=== PATIENT | female | born 1960 | race Caucasian/White ===

== ENCOUNTER 2016-06-28 06:39 | Day surgery (SDC) | payer OTHER ==
[2016-06-17 13:53] LABS: BASOPHILS 0.4 %; BASOPHILS ABSOLUTE 0.04 10/3/uL (0.0-0.16); EOSINOPHILS 0.6 %; EOSINOPHILS ABSOLUTE 0.07 10/3/uL (0.0-0.53); HEMATOCRIT 41.8 % (36.0-48.0); HEMOGLOBIN 14.2 g/dL (12.0-16.0); IMMATURE GRANULOCYTES 0.3 %; IMMATURE GRANULOCYTES ABSOLUTE 0.03 10/3/uL (0.0-0.11); LYMPHOCYTES 17.8 %; LYMPHOCYTES ABSOLUTE 2.02 10/3/uL (0.67-4.30); MEAN CORPUSCULAR VOLUME 91.3 fL (80-100); MEAN PLATELET VOLUME 11.1 fL (9.2-13.0); MONOCYTES 5.4 %; MONOCYTES ABSOLUTE 0.61 10/3/uL (0.21-1.20); NEUTROPHILS 75.5 %; NEUTROPHILS ABSOLUTE 8.61 10/3/uL (2.02-8.40); PLATELET COUNT 299 10/3/uL (150-400); RBC DISTRIBUTION WIDTH 12.8 % (12.0-16.0); RED CELL COUNT 4.58 10/6/uL (4.0-5.6); WHITE BLOOD CELLS 11.4 10/3/uL (4.5-10.5)
[2016-06-17 13:54] LABS: MANUAL DIFF NO %
[2016-06-17 14:03] LABS: BUN (BLOOD UREA NITROGEN) 15 MG/DL (6-23); CALCIUM, SERUM 9.3 MG/DL (8.5-10.4); CHLORIDE, SERUM 102 MMOL/L (96-112); CO2 (CARBON DIOXIDE) 31 MMOL/L (24-34); CREATININE 0.97 MG/DL (0.55-1.02); GFR AFRICAN AMERICAN 75 ML/MIN (>=60); GFR NON AFRICAN AMERICAN 65 ML/MIN (>=60); POTASSIUM, SERUM 3.2 MMOL/L (3.5-5.3); SODIUM, SERUM 141 MMOL/L (135-148)
[2016-06-17 14:04] LABS: GLUCOSE, SERUM 113 MG/DL (60-99)
[2016-06-17 14:09] LABS: ASCORBIC ACID (UR NOT ORDER) NEG (NEG); BILIRUBIN, URINE NEGATIVE (NEG); KETONE, URINE TRACE MG/DL (NEG); LEUKOCYTE ESTERASE(NOT OR LARGE (NEG); WBC (NOT ORDERED) (RFLEX) 101 (0-5)
[2016-06-17 14:14] LABS: PFA (COL/EPI) 98 SEC (72-180)
--- NOTE | ~2016-06-28 | OP ---
Record Of Operation [facility] [address] [place]. [address] NAME: JAZMINE COX : 56 STATUS : [facility]#: [id number] AGE: 55 ADM/REG DATE : 06/28/16 MR#: [id number] REPORT SERV DATE: 06/28/16 DICTATED BY: JJ KHAN DATE: 06/28/16 REPORT STATUS : Draft TRANSCRIBED BY: MUNIR DATE: 06/28/16 DATE OF PROCEDURE: 06/28/2016 PREOPERATIVE DIAGNOSIS: Left ureteral stone. POSTOPERATIVE DIAGNOSIS: Left ureteral stone. PROCEDURE: Left extracorporeal shock wave lithotripsy. SURGEON: Jj Khan M.D. ANESTHESIA: MAC. SPECIMENS: None. ESTIMATED BLOOD LOSS: None. DISPOSITION: To PACU in good condition. HISTORY: A 55-year-old woman who, several months ago, had treatment of a large renal stone. She has been passing several fragments in her left ureter. She still has three fragments she is passing, they have made it to just above the acetabulum on the left. At this point in time, I believe we need to treat these particular fragments to get them to pass completely. They are each approximately 5-6 mm in size. She was in agreement. PROCEDURE IN DETAIL: After consent was obtained, the patient was taken to the lithotripsy table and placed on the table in a supine position. Her leading fragment was located on two planes. MAC anesthetic was induced. She then received 4000 shocks at a maximum energy level of 9 and rate of 90 to the stones. Tolerated the procedure and was taken to Day Surgery in good condition. Plan will be to send her home on Flomax, Lortab 7.5 #30, Levaquin 500 #3 to start tomorrow, and ondansetron #15. She is to follow up in two to three weeks with a KUB. HOMA/MUNIR Jj Khan M.D. / [id number] CC: Ladan Cantu M.D.
[~2016-06-28 06:39] MED LIST: BACTRIM; EFFEXOR XR150 MG PO; FLOMAX4 PO; HYDROCHLOROT25 MG PO; KLONO5 PO; LIPITOR20 PO; MEVACOR PO; POTASSIUM; VITAMIN D1000 UNI1 PO; VITAMIN D31000 UNIT PO
== END 2016-06-28 10:51 | disposition home or self-care (01) ==
LOC: SDC 06:39
PROVIDERS: Urology
PROC: 0TF7XZZ Fragmentation in Left Ureter, External Approach (ICD-10-PCS; principal; 2016-06-28 09:00)
DX: N20.1 Calculus of ureter (principal); Z88.5 Allergy status to narcotic agent; F41.9 Anxiety disorder, unspecified; E78.00 Pure hypercholesterolemia, unspecified; Z79.899 Other long term (current) drug therapy
CPT/HCPCS: 50590; 74000; 80048; 81001; 85025; 85576; 87086; 93005; J2250; J2370; J2405; J3010